=== PATIENT | male | born 1985 | race Caucasian/White ===

== ENCOUNTER → 2020-08-31 12:40 | Outpatient (BNVA) | payer SELFPAY | PROVIDERS: Visit Provider Psychiatry & Neurology Psychiatry | DX: F41.9 Anxiety disorder, unspecified (principal); F32.9 Major depressive disorder, single episode, unspecified | CPT/HCPCS: 90792 ==

== ENCOUNTER → 2020-10-26 07:42 | Outpatient (BNVA) | payer SELFPAY | PROVIDERS: Visit Provider Psychiatry & Neurology Psychiatry | DX: F41.9 Anxiety disorder, unspecified (principal) | CPT/HCPCS: 99214 ==

== ENCOUNTER 2022-06-27 11:07 | Emergency (ER) | payer OTHER, SELFPAY ==
[2022-06-27 11:37] VITALS: BP 154/79; PULSE 70; RESP 16; TEMP 36.7; O2SAT 97
[2022-06-27 12:13] LABS: Basophils % 0.6 %; Eosinophils # 0.1 10^3/uL (0.0-0.8); Eosinophils % 1.6 %; Hematocrit 42.6 % (42.0-52.0); Hemoglobin 14.7 g/dL (11.7-16.6); Lymphocytes # 2.4 10^3/uL (0.8-4.8); Lymphocytes % 35.1 %; Mean Corpuscular HGB Conc 34.5 g/dL (30.0-36.0); Mean Corpuscular Hemoglobin 30.2 pg (28.0-34.0); Mean Corpuscular Volume 87.7 fl (80-94); Monocytes # 0.6 10^3/uL (0.2-0.9); Monocytes % 8.7 %; Neutrophils % 52.1 %; Nucleated Red Blood Cells % 0 %; Platelet Count 295 10^3/cmm (130-400); Red Blood Count 4.86 10^6/uL (4.1-5.3); Red Cell Distribution Width 12.3 % (12.1-15.1); White Blood Count 6.9 10^3/uL (4.0-10.0)
[2022-06-27 12:33] LABS: Alanine Aminotransferase 51 U/L (0-41); Albumin Level 4.1 g/dL (3.5-5.2); Alkaline Phosphatase 81 U/L (40-130); Anion Gap 14.5 (5-19); Aspartate Amino Transferase 35 U/L (0-40); Blood Urea Nitrogen 7 mg/dL (6-20); Calcium 9.5 mg/dL (8.5-10.5); Carbon Dioxide 26 mmol/L (22-29); Chloride 102 mmol/L (98-107); Globulin 2.9 g/dL (1.3-4.6); Glomerular Filtration Rate 84.1 mL/min (90-130); Glucose 107 mg/dL (65-115); Osmolality Calculated 286 mOsm/kg (285-295); Potassium 3.5 mmol/L (3.5-5.1); Slide Review Slide Review Perform; Sodium 139 mmol/L (136-145); Total Bilirubin 0.4 mg/dL (0.15-1.2)
== END 2022-06-27 12:55 | disposition left against medical advice (07) ==
PROVIDERS: Emergency Medicine; Emergency Provider Family Medicine
DX: Z53.21 Procedure and treatment not carried out due to patient leaving prior to being seen by health care provider (principal)
CPT/HCPCS: 36415; 80053; 85025

== ENCOUNTER 2022-07-17 07:03 | Emergency (ER) | payer OTHER, SELFPAY ==
[2022-07-17 07:08] VITALS: BP 128/87; PULSE 76; RESP 16; TEMP 36.3; O2SAT 96; BMI 33.6
[2022-07-17 07:21] VITALS: BP 140/100; PULSE 79; RESP 16; O2SAT 97
[2022-07-17] MEDS: lidocaine 2% viscous 15 ML, aluminum-mag hydrox-simethicon 30 ML, sucralfate oral liq 1 GM PO (07:23)
[2022-07-17 07:36] VITALS: BP 139/97; PULSE 78; RESP 18; O2SAT 97
--- NOTE | 2022-07-17 08:06 | ED_ITS ---
HPI - Abdominal Pain General: Chief Complaint: Abdominal Pain Stated Complaint: abd pain Time Seen by Provider: 07/17/22 07:19 History of Present Illness: Patient is a 37-year-old male presenting today with epigastric abdominal pain. Patient notes several days of epigastric abdominal pain. Consistent with prior ulcers that he has had. Patient states he is try to take amoxicillin as he read online this would help his pain. However it does not appear to be helping. Patient notes he has been extremely gassy. With frequent burping. Symptoms appear to be worse at night. Somewhat relieved during the day. Also worsened with eating. No significant surgical history. He denies fevers or chills. He denies nausea or vomiting. He denies chest pain or shortness of breath. He has no other complaints or concerns. Review of Systems General: Reports: 10 or more systems reviewed and unremarkable except in HPI and below PFSH ED PFSH: Medical History (Updated 07/17/22 @ 08:07 by Jovi Weber DO) Anxiety and depression Social History Current gender identity: Male Physical Exam Const: COMMON NORMALS: no acute distress, patient oriented x3 and alert GENERAL APPEARANCE: cooperative ORIENTATION/CONSCIOUSNESS: Yes awake, Yes oriented to person, Yes oriented to place and Yes oriented to time HENMT: COMMON NORMALS: normocephalic, atraumatic, external ears normal, Normal external nose present and moist oral mucous membranes HEAD & SCALP: normal to inspection, normocephalic and atraumatic NOSE: Normal external nose present GENERAL EAR: hearing grossly impaired EXTERNAL EAR: Yes external ears normal Eye: COMMON NORMALS: Equal, round and reactive pupils present, EOMs intact bilaterally, conjunctivae normal and no scleral icterus GENERAL EYE: appearance normal, both eyes and all related structures EYELID: eyelids normal CONJUNCTIVA: Yes conjunctivae normal SCLERA: sclerae normal PUPIL: Yes Equal, round and reactive pupils present Neck/C-Spine: COMMON NORMALS: full ROM, supple and no JVD GENERAL: Yes normal visual inspection Lymph: LYMPHATIC: no lymphadenopathy noted and no lymphedema noted Chest: COMMONS NORMALS: normal inspection of the chest Resp: COMMON NORMALS: normal respiratory effort, No retractions and No use of accessory muscles Cardio: COMMON NORMALS: no JVD, regular rate and regular rhythm RATE: regular rate RHYTHM: regular rhythm GI: COMMON NORMALS: Normal to inspection, nondistended, normoactive bowel sounds present : COMMON NORMALS: Yes no CVA tenderness BLADDER/KIDNEY EXAM: Yes no CVA tenderness Back/Pelvis: COMMON NORMALS: no CVA tenderness and thoracic and lumbar spine normal to inspection Extremity: COMMON NORMALS: normal to inspection, full ROM and capillary refill normal GENERAL: Yes normal exam except as noted Neuro: COMMON NORMALS: patient oriented x3, CN's II-XII intact bilaterally, moves all extremities, no focal motor deficits, no sensory deficits noted and gait normal SENSORIUM/ORIENTATION: Yes alert, Yes oriented to person, Yes oriented to place and Yes oriented to time Psych: COMMON NORMALS: mental status grossly normal, Normal thought process present, cooperative and normal affect THOUGHT PROCESS: Normal thought process present Skin: COMMON NORMALS: no rashes or lesions noted and no wounds GENERAL SKIN EXAM: no rashes or lesions noted Course Vital Signs: Vital signs: Vital Signs Temperature 97.4 F L 07/17/22 07:08 Pulse Rate 78 07/17/22 07:36 Respiratory Rate 18 07/17/22 07:36 Blood Pressure 139/97 07/17/22 07:36 Pulse Oximetry 97 07/17/22 07:36 Oxygen Delivery Me thod 07/17/22 07:36 MDM - Abdominal Pain Medical Decision Making 37-year-old male presenting today with epigastric abdominal pain. Abdominal exam is benign and not suggestive of appendicitis, cholecystitis, small bowel obstruction or other life-threatening pathology. Only minor epigastric tenderness. Patient with complete resolution of symptoms after GI cocktail. Will place patient on Carafate and omeprazole for the same. Patient was given strict return precautions and recommended routine outpatient follow-up. Discharge Plan Discharge Patient Disposition: Home Clinical Impression: Gastritis Condition: Stable Prescriptions: New sucralfate [Carafate] 1 gram tablet 1 g PO TID 28 Days Qty: 84 0RF pantoprazole 40 mg tablet,delayed release (DR/EC) 40 mg PO Q12H 14 Days Qty: 28 0RF No Action trazodone 50 mg tablet 50 mg PO .qhs PRN (Reason: sleep) 30 Days Qty: 30 3RF Rx Instructions: may take a-half or whole tab po HS prn sleep Discharge Orders: Discharge ED (Routine); Ordered 07/17/22 Ordered By: Jovi Weber Discharge Diet: Advance as tolerated Patient Instructions: Gastritis (ED) Coding Level of Care Code ED Director Of Financial Reporting for Faustino Kolb
[2022-07-17 08:19] VITALS: BP 149/83; PULSE 75; RESP 21; O2SAT 95
== END 2022-07-17 08:26 | disposition home or self-care (01) ==
PROVIDERS: Emergency Provider Emergency Medicine
DX: K29.70 Gastritis, unspecified, without bleeding (principal)
CPT/HCPCS: 99283

== ENCOUNTER 2025-04-28 20:00 | Outpatient (CLI) | payer OTHER, SELFPAY | END 2025-04-28 20:01 | disposition home or self-care (01) | LOC: SLEEP 04-29 06:13 | PROVIDERS: Visit Provider Internal Medicine Pulmonary Disease | DX: G47.33 Obstructive sleep apnea (adult) (pediatric) (principal); G47.36 Sleep related hypoventilation in conditions classified elsewhere | CPT/HCPCS: 95810 ==

== ENCOUNTER 2025-07-02 19:53 | Outpatient (CLI) | payer OTHER, SELFPAY | END 2025-07-02 19:54 | disposition home or self-care (01) | LOC: SLEEP 19:53 | PROVIDERS: Visit Provider Family Medicine | DX: G47.33 Obstructive sleep apnea (adult) (pediatric) (principal) | CPT/HCPCS: 95811 ==